=== PATIENT | female | born 1960 | race Caucasian/White ===

== ENCOUNTER 2016-12-05 18:11 | Inpatient (IN) ==
[2016-12-05] MEDS ORDERED: SODIUM CHLORIDE 0.9% 1,000 ML IV STA (19:35)
[2016-12-05] MEDS ORDERED: ONDANSETRON 4 MG/2 ML VIAL IV STA ×2 (19:35→23:06)
[2016-12-05] MEDS ORDERED: MORPHINE 2 MG/1 ML SYRINGE IV STA (19:35)
[2016-12-05 19:38] LABS: Basophils % 0.5 % (0.0-0.8); Eosinophils % 0.4 % (0.00-10.9); Hematocrit 33.5 VOL% (35.7-47.0); Hemoglobin 11.3 GM/DL (12.0-16.0); Immature Granulocytes % 6.6 %; Immature Granulocytes Absolute 0.37 #; Lymphocytes # 0.5 10*3/uL (1.4-4.0); Lymphocytes % 9.3 % (21.3-54.2); Mean Corpuscular HGB Conc 33.7 GM/DL (32-36); Mean Corpuscular Hemoglobin 30 PG (27-34); Mean Corpuscular Volume 88.9 FL (87-102); Mean Platelet Volume 8.6 FL (9.6-12.0); Monocytes # 0.5 10*3/uL (0.11-0.8); Monocytes % 8.7 % (1.7-12.7); Neutrophils # 4.2 10*3/uL (1.4-7.4); Neutrophils % 74.5 % (38.7-73.9); Platelet Count 176 T/CUMM (130-400); Red Blood Count 3.77 MC/CUMM (3.8-5.5); Red Cell Distribution Width 13.1 % (9.3-17.3); White Blood Count 5.6 T/CUMM (4-12)
[2016-12-05] MEDS ORDERED: ONDANSETRON 4 MG/2 ML VIAL ONE ×2 (19:39→23:07)
[2016-12-05] MEDS ORDERED: MORPHINE 2 MG/1 ML SYRINGE ONE (19:39)
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
[2016-12-05 19:59] LABS: Alanine Aminotransferase 14 U/L (13-56); Albumin 3.1 G/DL (3.4-5.0); Alkaline Phosphatase 143 U/L (45-117); Aspartate Amino Transferase 12 U/L (0-37); Bilirubin,Total < 0.39 MG/DL (0.2-1.0); Blood Urea Nitrogen 10 MG/DL (7-18); Calcium 9.1 MG/DL (8.5-10.1); Glucose 108 MG/DL (74-106); Osmolality,Calculated 259.8 MOS/KG (273-304); Potassium 3.8 MMOL/L (3.5-5.1); Sodium 130 MMOL/L (136-145); Total Protein 6.3 G/DL (6.4-8.3)
--- NOTE | 2016-12-05 20:01 | XRay Report ---
AP and left lateral decubitus imaging performed December 05, 2016 Indication: Abdominal distention with pain Comparison images performed February 26, 2016 Findings: Gaseous distention of the proximal colon with stool dispersed throughout the distal colon and rectum. Small bowel gas pattern is normal. No free intraperitoneal air. Impression: Fecal stasis, questionable fecal impaction PROCEDURE INTERPRETED AT [facility] DEPARTMENT OF RADIOLOGY Final Report Signed by: Andrew Santos
[2016-12-05 20:22] LABS: Band Neutrophils 2 % (0-10); Eosinophils 1 % (0-10); Lymphocytes 7 % (20-55); Platelet Estimate Normal; Segmented Neutrophils 86 % (50-85); Total Cells Counted 100
--- NOTE | 2016-12-05 20:35 | EKG Report ---
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
--- NOTE | 2016-12-05 21:07 | CT Report ---
Postcontrast CT abdomen December 05, 2016 Indication: Abdominal pain, liver metastasis Comparison images dated February 26, 2016 Technique: CT scan of the abdomen and pelvis was performed after the administration of intravenous contrast per routine protocol Findings: Lung bases are well aerated. Poorly defined intermediate density within the anterior aspect of the left lateral lobe has developed in the interim measuring about 3.3 cm. Scattered simple and lobulated hypodensities throughout the liver parenchyma relatively unchanged. Prior cholecystectomy. Persistent dilatation of the central intrahepatic and extrahepatic bile ducts. Pancreas is mildly atrophic. Kidneys are normal in morphology and enhancement. No small bowel abnormalities. No free fluid within the abdomen or pelvis. No adenopathy. No intraperitoneal air. Diffuse colonic distention with air-fluid levels proximal to the splenic flexure. Stool dispersed throughout the distal colon and rectum. No associated wall thickening. No pericolonic stranding. No demonstratable strictures. Uterus is surgically absent. Urinary bladder is partially decompressed. Levoscoliosis of the lumbar spine with prior L4-5 laminectomies and stabilization, uncomplicated. Impression: 1. Constipation with prominent distention of the proximal and transverse colon with air-fluid levels. 2. Ill-defined 3.3 cm lesion developed along the anterior margin of the left hepatic lobe. Given history of small cell carcinoma, could not exclude metastasis. Correlate with PET/CT if clinically indicated 3. Other findings as detailed above PROCEDURE INTERPRETED AT [facility] DEPARTMENT OF RADIOLOGY Final Report Signed by: Andrew Santos
[2016-12-05 21:12] LABS: Apearance,Urine CLEAR (Clear); Bilirubin,Urine Negative (Negative); Blood, Urine Negative (Negative); Glucose,Urine (UA) Negative (Negative); Hyaline Casts,Urine 1 /LPF (0-3); Ketones,Urine 20 mg/dL (Negative); Mucus,Urine Occasional /LPF (Occasional); Nitrite,Urine Negative (Negative); Protein,Urine Negative; RBC,Urine <1 /HPF (0-4); Squamous Epithelial Cell,Urine Occasional /HPF (0-10); Urine Color Yellow (Yellow); Urine Specific Gravity 1.035 (1.001-1.035); Urine Urobilinogen < 2.0 EU/DL (0.2-1.0); WBC,Urine 2 /HPF (0-6)
[2016-12-05] MEDS ORDERED: HYDROmorphone 2 MG/1 ML VIAL IV STA ×2 (21:26→23:06)
[2016-12-05] MEDS ORDERED: HYDROmorphone 2 MG/1 ML VIAL ONE (21:30)
[2016-12-05] MEDS ORDERED: ACETAMINOPHEN 325 MG TABLET PO PRN (22:22)
[2016-12-05] MEDS ORDERED: ONDANSETRON 4 MG/2 ML VIAL IV PRN (22:22)
[2016-12-05] MEDS ORDERED: DIAZEPAM 5 MG TABLET PO ONE (22:45)
[2016-12-05] MEDS ORDERED: PROCHLORPERAZINE 25 MG SUPP RECTAL PRN (22:52)
[2016-12-05] MEDS ORDERED: PROMETHAZINE INJ 12.5 MG in SODIUM CHLORIDE 0.9% 50 ML IV PRN (22:52)
[2016-12-05] MEDS ORDERED: SODIUM PHOSPHATE ENEMA 133 ML BOTTLE RECTAL SCH (23:00)
[2016-12-05] MEDS ORDERED: SODIUM CHLORIDE 0.9% 1,000 ML IV SCH (23:00)
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
[2016-12-06] MEDS ORDERED: PROCHLORPERAZINE 10 MG TABLET PO PRN (00:53)
[2016-12-06] MEDS ORDERED: PROMETHAZINE 25 MG/1 ML VIAL IM PRN (00:55)
[2016-12-06] MEDS: ENOXAPARIN 40 MG/0.4 ML SYRINGE SUBCUT SCH ×2 (01:14→21:54)
[2016-12-06] MEDS: LACTULOSE 20 GM/30 ML UDCUP PO SCH ×2 (01:15→09:00)
[2016-12-06] MEDS ORDERED: PHENYLEPHRINE 0.25% SUPP RECTAL PRN (02:50)
[2016-12-06] MEDS: MORPHINE 2 MG/1 ML SYRINGE IV PRN ×4 (03:20→15:22)
[2016-12-06] MEDS ORDERED: HYDROmorphone 2 MG/1 ML VIAL IV ONE (08:29)
[2016-12-06] MEDS: MORPHINE ER 30 MG TABLET PO SCH ×2 (09:00→20:24)
[2016-12-06] MEDS ORDERED: MORPHINE ER 15 MG TABLET PO SCH (09:00)
[2016-12-06] MEDS: PANTOPRAZOLE 40 MG TABLET PO SCH (09:00)
[2016-12-06] MEDS: POLYETHYLENE GLYCOL POWDER 17 GM PACK PO SCH (09:00)
--- NOTE | 2016-12-06 09:11 | XRay Report ---
2 view chest December 06, 2016 Indication: Shortness of breath cough Comparison images November 13, 2016 Findings: Cardiac and mediastinal contours are normal. Lungs are clear bilaterally. No pleural effusions. No pneumothorax. No perihilar prominence. No acute osseous abnormalities. Note made of prior cervical fusion, uncomplicated. Impression: Normal chest. PROCEDURE INTERPRETED AT [facility] DEPARTMENT OF RADIOLOGY Final Report Signed by: Andrew Santos
--- NOTE | 2016-12-06 10:03 | Hospitalist Progress Note ---
Assessment and Plan (1) Constipation Status: Acute Assessment and plan: The patient appears to have extensive stool throughout the descending colon. Her present efforts are striving to remove the impacted stool using enemas from below and moderate amounts of laxatives from above. The patient's obstipation is certainly augmented by her chronic opiate use required to treat back pain and chest discomfort from her small cell carcinoma. We will continue to select give supportive care with IV hydration, clear liquids, laxatives. There is no evidence of infection at the present time we will continue to observe for development of sepsis. Current Visit: Yes (2) Hyponatremia Status: Acute Current Visit: Yes (3) Hypertension Status: Chronic Current Visit: Yes (4) Small cell carcinoma Status: Chronic Current Visit: Yes Hospitalist: Subjective Interval history: The patient is admitted to the hospital with abdominal pain of a colicky nature. The pain is moderate to severe, episodic, and improved moderately with narcotic pain meds. The patient also complains of hemorrhoidal pain which is causing her to be nonadherent to the regimen prescribed with enemas. The patient is wishing to have a procedure which might relieve her of the obstipation. I discussed the patient's illness with her and we coordinate care at the bedside. I coordinate care with Dr. Dale concerning consultation in the absence of Dr. Springer. Rescreening the patient's CT scan images did not reveal any evidence of volvulus to Dr. Dale. Exam - Constitutional Vitals: Period Temp Pulse Resp BP Sys/Gagnon Pulse Ox Last 24 Hr 97.5 F-98.0 F 86-114 16-22 102-129/65-91 91-97 General appearance: normal weight - Respiratory Respiratory exam: Present: clear to auscultation bilaterally - Cardiovascular Cardiovascular exam: Present: regular rate and rhythm - GI/Abdominal GI/Abdominal exam: Present: hypoactive bowel sounds - Extremities Exam Extremities exam: Present: normal inspection Results - Labs CBC & BMP: 12/05/16 19:28 12/05/16 19:28 Lab Results: I have reviewed the past 24 hour labs
[2016-12-06] MEDS ORDERED: ONDANSETRON ODT 4 MG TABLET PO PRN (11:00)
[2016-12-06] MEDS ORDERED: PHENYLEPH/MINERAL OIL/PETROLAT 57 GM TUBE TOP PRN (11:07)
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
[2016-12-06] MEDS ORDERED: POLYETHYLENE GLYCOL 3350/ELECTROLYTES 4,000 ML BOTTLE PO ONE (13:00)
[2016-12-06 13:46] LABS: Calcium 8.2 MG/DL (8.5-10.1); Magnesium 1.9 MG/DL (1.8-2.4); Osmolality,Calculated 260.7 MOS/KG (273-304); Phosphorous 2.6 MG/DL (2.5-4.9); Potassium 3.5 MMOL/L (3.5-5.1)
[2016-12-06] MEDS: ACETAMINOPHEN 325 MG TABLET PO SCH ×3 (14:21→20:25)
[2016-12-06] MEDS: SODIUM CHLORIDE 0.9% 1,000 ML IV SCH (14:22)
[2016-12-06] MEDS ORDERED: DIAZEPAM 5 MG TABLET PO PRN (14:58)
[2016-12-06] MEDS ORDERED: ZALEPLON 5 MG CAPSULE PO PRN (20:49)
[2016-12-07] MEDS: MORPHINE 2 MG/1 ML SYRINGE IV PRN (00:53)
[2016-12-07] MEDS: MORPHINE ER 30 MG TABLET PO SCH (08:00)
[2016-12-07] MEDS: POLYETHYLENE GLYCOL POWDER 17 GM PACK PO SCH (08:01)
[2016-12-07] MEDS: ACETAMINOPHEN 325 MG TABLET PO SCH (08:01)
[2016-12-07] MEDS: SODIUM CHLORIDE 0.9% 1,000 ML IV SCH (08:01)
[2016-12-07] MEDS: PANTOPRAZOLE 40 MG TABLET PO SCH (08:01)
[2016-12-07 09:42] VITALS: BP 116/70
--- NOTE | 2016-12-07 11:04 | Discharge Summary ---
Hospital Course - Hospital Course Hospital Course: Mrs Dougherty presented with 2 weeks of constipation from narcotics which she uses for cancer pain. BMs were reestablished with soap suds enemas, miralax, and lactulose. She is feeling hungry again and her abdominal pain has resolved. She will return home on daily Miralax and lactulose with enemas prn. She will see Dr Springer in a week for follow up. She has an appointment with Dr Lam and DR Corral (for port). - Time spent with patient Time with patient DS: Greater than 30 minutes (35 minutes spent in exam, discharge planning, discussion of home treatment for constipation, medicine reconciliation and documentation) Diagnosis - Discharge Diagnosis (1) Constipation Status: Resolved Specialty Discharge - Follow Up or Referrals Follow up with: Vladislav Lam MD [Physician] - Klever Springer MD [Physician] - 1 Week (narcotic consitpation) Discharge Plan - Discharge Data Disposition: Disch To Home/Self Care Condition at Discharge: Stable Discharge Diet: regular diet Activity: resume usual activities as tolerated - Discharge Medications New Phenyleph/Mineral Oil/Petrolat [Preparation H Ointment] 1 applic TOP PRN PRN applic PRN Reason: Hemorrhoids Polyethylene Glycol Powder [Miralax] 17 gm PO DAILY Continue Morphine Sulfate [Morphine ER Cap] 30 mg PO BID Zolpidem Tartrate [Ambien] 10 mg PO BEDTIME buPROPion XL [Wellbutrin Xl] 300 mg PO DAILY SUMAtriptan TAB [Imitrex Tab] 100 mg PO DIRECTED PRN PRN Reason: Headache Omeprazole [Prilosec] 20 mg PO BID HydrOXYzine PAMOATE CAP [Vistaril Cap] 25 mg PO TID PRN PRN Reason: HEADACHES Prochlorperazine Tab [Compazine Tab] 10 mg PO TID PRN PRN Reason: Nausea/Vomiting Pegfilgrastim [Neulasta] 6 mg SQ DIRECTED LORazepam [Lorazepam] 1 mg PO DIRECTED PRN PRN Reason: Anxiety Lactulose 40 gm PO DAILY PRN PRN Reason: Constipation Docusate/Senna 50-8.6 [Senokot S] 2 tablet PO DAILY PRN MDD 4 tabs PRN Reason: Constipation Bisacodyl Tab [Dulcolax Tab] 10 mg PO DAILY PRN MDD 15mg PRN Reason: Constipation Cholecalciferol (Vitamin D3) [Vitamin D3] 2,000 unit PO DAILY Promethazine Tab [Phenergan Tab] 25 mg PO Q4-6H PRN PRN Reason: Nausea/Vomiting Melatonin 10 mg PO BEDTIME PRN PRN Reason: Sleep Acetaminophen Tab [Tylenol Tab] 325 mg PO Q4H PRN PRN Reason: Pain Oxycodone HCl/Acetaminophen [Percocet 10-325 mg Tablet] 1 each PO TID PRN PRN Reason: Pain Dicyclomine Cap/Tab [Bentyl Cap/Tab] 10 mg PO QID PRN PRN Reason: stomach spams diazePAM [Diazepam] 10 mg PO BID PRN PRN Reason: Anxiety Docusate Sodium Cap [Colace Cap] 100 mg PO DAILY PRN PRN Reason: Constipation Ondansetron HCl 8 mg PO Q6HR PRN PRN Reason: Nausea Discontinued Carisoprodol [Soma] 350 mg PO TID Lisinopril/Hctz 20-12.5 [Prinzide 20-12.5] 1 tablet PO DAILY - Follow Up or Referral Follow Up: Klever Springer MD [Physician] - 1 Week (narcotic consitpation) Vladislav Lam MD [Physician] - - Forms/Instructions Exam - Constitutional Vitals: Period Temp Pulse Resp BP Sys/Gagnon Pulse Ox Last 24 Hr 96.8 F-97.8 F 68-90 18-22 96-128/60-71 86-98 General appearance: normal weight, no acute distress - Eye Eye exam: Present: EOMI. Absent: scleral icterus - Respiratory Respiratory exam: Present: clear to auscultation bilaterally - Cardiovascular Cardiovascular exam: Present: regular rate and rhythm - GI/Abdominal GI/Abdominal exam: Present: normal bowel sounds, soft - Extremities Exam Extremities exam: Absent: edema Discharge Results Labs on day of discharge: Labs from last 24 hours 12/06/16 12:54 Sodium 131 L Potassium 3.5 Chloride 97 L Carbon Dioxide 25 Anion Gap 12.5 BUN 6 L Creatinine 0.50 L GFR Calculation 111 BUN/Creatinine Ratio 12.00 Glucose 116 H Calculated Osmolality 260.7 L Calcium 8.2 L Phosphorus 2.6 Magnesium 1.9 DS: Provider Date of admission: 12/05/16 22:22 Primary care physician: Hayde Santos NP Attending physician on admission: Graciela Raymundo MD Consults: 12/05/16 23:47 Consult to Dietitian [CONS] Routine Reason for Dietitian: Dietary Consult 12/06/16 08:32 Consult to Physician [CONS] Routine Comment: abdominal pain, obstipation Consulting Provider: Yazmin Dale Person Notified: Dr. Dale Date Notified: 12/06/16 Time Notified: 08:41 Discharging clinician: Darcy Moreno MD
--- NOTE | 2016-12-07 12:29 | Gastrointestinal Progress Note ---
Assessment and Plan (1) Abdominal pain Status: Acute Current Visit: Yes (2) Constipation Status: Resolved Current Visit: Yes (3) Nausea & vomiting Status: Acute Assessment and plan: PLEASE NOTE -- automatic citation of patient information is unavoidable in this electronic note. I have made a reasonable effort to review the information cited , but it is not a part of my evaluation, impression, or recommendation unless specifically discussed in the dictated text that follows. As well, voice recognition software was used in the creation of this clinical note. Reasonable effort was made to identify and correct gross errors. Despite proofreading, errors in tactical air defense controller may be present, including nonsense verbiage at times. If you encounter such an error, please contact me at [phone] for discussion and correction. -- Chito Chief complaint: Abdominal pain was severe opioid induced constipation 24 hour events: Started on GoLYTELY prep sipped over the day, repeated soapsuds enemas, significant bowel movement, complete relief of pain Subjective: Mrs. Shikha Dougherty states today that she had significant emptying of her intestines, abdominal pain is nearly completely resolved today, has an appetite, tolerating diet. Abdomen is very soft and compressible and no longer distended. Is ready to go home. Medications: Personally reviewed REVIEW OF SYSTEMS: Complete other review of systems negative except as noted in the HPI PHYSICAL EXAMINATION: CONSTITUTIONAL: Vital signs reviewed as documented above. In no acute distress. Nontoxic-appearing. EYES: Anicteric conjunctiva. Extra-ocular movements are intact and symmetric. EARS: Able to hear speech at conversational volume level, no external trauma/ masses. MOUTH: No oral/mouth lesions or ulcers. GI/ABDOMEN: Nonobese abdomen, soft, nontender to palpation, no rebound tenderness, nondistended, no rigidity. No palpable mass. No appreciable hepatosplenomegaly. MUSCULOSKELETAL: Moving around comfortably in bed muscle tone appears normal without any abnormal movements. PSYCH: Normal affect. Alert and oriented to person, place, and time. Laboratory: Personally reviewed Radiology: Personally reviewed reports and images with no pertinent changes unless noted here: Assessments: #Severe opioid-induced constipation. Now resolved with aggressive bowel regimen. #Metastatic lung cancer with potentially new 3 cm lesion on the left lobe of the liver. #Other specified counseling -- The patient was seen for greater than 30 minutes. The patient was counseled for greater than 50% of this time regarding differential diagnosis, likely diagnosis, diagnostic and therapeutic alternatives, risks/benefits/alternatives of medications and procedures, and plan of care generally. The patient expressed understanding and wishes to proceed. Recommendations: -Patient will be maintained on chronic outpatient opioid regimen, daily bowel movements will be especially important for her. -Daily MiraLAX is a good bowel regimen, patient counseled, can take as much or as little as needed daily to maintain 1-2 soft bowel movements per day. If she goes more than a day without a bowel movement, can increase MiraLAX dosing aggressively. Can additionally use Colace or lactulose if she likes, although all medications are stool softeners, lactulose can cause more gaseous distention in some patients, and patient does not like the sweet flavor. Colace can also continue to be used, but max doses 2 tablets per day. -Patient getting radiology report records in order to take to her cancer center. -Consider outpatient colonoscopy in 6-8 weeks to ensure bowel lumen is normal. Patient reports she is also due for her 5 year follow-up surveillance based on mother's history. GI will sign off at this time. Please call with further questions. Yazmin Dale MD, MPH STAFF GRADALL OPERATOR Current Visit: Yes Exam (Progress Note) - Constitutional Vitals: Period Temp Pulse Resp BP Sys/Gagnon Pulse Ox Last 24 Hr 96.8 F-97.7 F 68-85 18-20 96-117/60-70 86-98 Results - Labs CBC & BMP: 12/05/16 19:28 12/06/16 12:54 Specialty Discharge - Follow Up or Referrals Follow up with: Klever Springer MD [Physician] - 1 Week (narcotic consitpation) Vladislav Lam MD [Physician] -
== END 2016-12-07 12:35 | disposition home or self-care (01) | DRG 392 ==
LOC: N.ED 18:11 → SUATTDRO 22:22 → N.EDINP 22:22 → N.4E 23:10
PROVIDERS: ADMIT Internal Medicine; ATTEND Internal Medicine

== ENCOUNTER 2017-05-01 16:13 | Inpatient (IN) ==
[2017-05-01] MEDS ORDERED: HYDROmorphone 2 MG/1 ML VIAL IV STA (18:28)
[2017-05-01] MEDS ORDERED: ONDANSETRON 4 MG/2 ML VIAL IV STA (18:28)
[2017-05-01] MEDS ORDERED: ONDANSETRON 4 MG/2 ML VIAL ONE (18:36)
[2017-05-01] MEDS ORDERED: HYDROmorphone 2 MG/1 ML VIAL ONE (18:37)
[2017-05-01 18:47] LABS: Eosinophils % 0.3 % (0.00-10.9); Hematocrit 23.5 VOL% (35.7-47.0); Hemoglobin 7.9 GM/DL (12.0-16.0); Immature Granulocytes % 7.2 %; Immature Granulocytes Absolute 0.22 #; Lymphocytes # 0.4 10*3/uL (1.4-4.0); Lymphocytes % 12.4 % (21.3-54.2); Mean Corpuscular HGB Conc 33.6 GM/DL (32-36); Mean Corpuscular Hemoglobin 30 PG (27-34); Mean Platelet Volume 11.1 FL (9.6-12.0); Monocytes # 0.6 10*3/uL (0.11-0.8); Monocytes % 18.3 % (1.7-12.7); NRBC # 0.03 10*3/uL; Neutrophils # 1.9 10*3/uL (1.4-7.4); Neutrophils % 61.8 % (38.7-73.9); Red Blood Count 2.67 MC/CUMM (3.8-5.5); Red Cell Distribution Width 16.7 % (9.3-17.3); White Blood Count 3.1 T/CUMM (4-12)
[2017-05-01 18:52] LABS: Platelet Count 22 T/CUMM (130-400)
[2017-05-01 19:04] LABS: Band Neutrophils 5 % (0-10); Hypochromasia Slight; Lymphocytes 19 % (20-55); Microcytosis Slight; Nucleated Red Blood Cells 2 (0-5); Platelet Estimate Decreased; Segmented Neutrophils 68 % (50-85); Total Cells Counted 100
[2017-05-01 19:06] LABS: Apearance,Urine CLEAR (Clear); Bacteria,Urine Occasional /HPF (Few); Bilirubin,Urine Negative (Negative); Blood, Urine Negative (Negative); Glucose,Urine (UA) Negative (Negative); Ketones,Urine 20 mg/dL (Negative); Mucus,Urine Occasional /LPF (Occasional); Nitrite,Urine Negative (Negative); Protein,Urine Negative; RBC,Urine 1 /HPF (0-4); Squamous Epithelial Cell,Urine Occasional /HPF (0-10); Urine Color Yellow (Yellow); Urine Specific Gravity 1.013 (1.001-1.035); Urine Urobilinogen < 2.0 EU/DL (0.2-1.0); WBC,Urine 14 /HPF (0-6)
[2017-05-01] MEDS ORDERED: LEVOFLOXACIN INJ 500 MG in PREMIX 1 EACH IV STA (19:21)
[2017-05-01 19:27] LABS: Albumin 2.8 G/DL (3.4-5.0); Bilirubin,Total 0.8 MG/DL (0.2-1.0); Calcium 8.4 MG/DL (8.5-10.1); Magnesium 1.8 MG/DL (1.8-2.4); Osmolality,Calculated 249.5 MOS/KG (273-304); Potassium 4.6 MMOL/L (3.5-5.1); Total Protein 5.9 G/DL (6.4-8.3)
[2017-05-01] MEDS ORDERED: ALPRAZolam 0.25 MG TABLET PO PRN (19:28)
[2017-05-01] MEDS ORDERED: MYLANTA/LIDO VISC 2:1 300 ML BOTTLE SWISH/SPIT PRN (19:28)
[2017-05-01] MEDS ORDERED: MAGNESIUM HYDROXIDE SUSP 30 ML UDCUP PO PRN (19:28)
[2017-05-01] MEDS ORDERED: ACETAMINOPHEN 325 MG TABLET PO PRN (19:28)
[2017-05-01] MEDS ORDERED: PROMETHAZINE INJ 25 MG in SODIUM CHLORIDE 0.9% 50 ML IV PRN (19:28)
[2017-05-01] MEDS ORDERED: diphenhydrAMINE CAP 25 MG CAPSULE PO PRN (19:28)
[2017-05-01] MEDS ORDERED: BENZTROPINE 2 MG/2 ML AMP IV PRN (19:28)
[2017-05-01] MEDS ORDERED: LOPERAMIDE 2 MG CAPSULE PO PRN ×2 (19:28)
[2017-05-01] MEDS ORDERED: guaiFENesin 200 MG/10 ML UDCUP PO PRN (19:28)
[2017-05-01] MEDS ORDERED: ALUMINUM/MAGNES/SIMETH MAX STR 30 ML UDCUP PO PRN (19:28)
[2017-05-01] MEDS ORDERED: MYLANTA/LIDO VISC 2:1 300 ML BOTTLE SWISH/SWAL PRN (19:28)
[2017-05-01] MEDS ORDERED: LACTULOSE 20 GM/30 ML UDCUP PO PRN (19:28)
[2017-05-01] MEDS ORDERED: HYDROmorphone 2 MG/1 ML VIAL IV PRN (19:40)
[2017-05-01] MEDS ORDERED: SODIUM CHLORIDE 0.45% 1,000 ML IV SCH (20:00)
[2017-05-01] MEDS ORDERED: LEVOFLOXACIN INJ 100 ML IV ONE (20:19)
[2017-05-01 22:09] LABS: Sedimentation Rate-Westergren 130 MM/HR (0-30)
[2017-05-01] MEDS: HYDROmorphone 2 MG/1 ML VIAL IV PRN (22:54)
[2017-05-02] MEDS: ONDANSETRON 4 MG/2 ML VIAL IV PRN ×3 (05:10→19:06)
[2017-05-02] MEDS: HYDROmorphone 2 MG/1 ML VIAL IV PRN ×4 (05:16→21:00)
[2017-05-02] MEDS: SODIUM CHLORIDE 0.9% 1,000 ML IV SCH (11:46)
[2017-05-02] MEDS: VANCOMYCIN INJ 1,000 MG in SODIUM CHLORIDE 0.9% 250 ML IV SCH (11:47)
[2017-05-02] MEDS: DIAZEPAM 5 MG TABLET PO PRN (14:51)
[2017-05-02] MEDS: LEVOFLOXACIN INJ 500 MG in PREMIX 1 EACH IV SCH (21:05)
[2017-05-02] MEDS: NORTRIPTYLINE 10 MG CAPSULE PO SCH (21:06)
[2017-05-02] MEDS: TEMAZEPAM 7.5 MG CAPSULE PO PRN (22:25)
[2017-05-03] MEDS: VANCOMYCIN INJ 1,000 MG in SODIUM CHLORIDE 0.9% 250 ML IV SCH ×3 (00:14→23:37)
[2017-05-03] MEDS ORDERED: HEPARIN LOCK FLUSH 500 UNIT/5 ML SYRINGE IV ONE (04:48)
[2017-05-03] MEDS: ONDANSETRON 4 MG/2 ML VIAL IV PRN ×2 (04:56→14:52)
[2017-05-03] MEDS: SODIUM CHLORIDE 0.9% 1,000 ML IV SCH (05:00)
[2017-05-03] MEDS: HYDROmorphone 2 MG/1 ML VIAL IV PRN ×3 (05:01→22:23)
[2017-05-03 06:20] LABS: Eosinophils % 0.3 % (0.00-10.9); Hematocrit 20.5 VOL% (35.7-47.0); Hemoglobin 7.6 GM/DL (12.0-16.0); Immature Granulocytes % 6.4 %; Immature Granulocytes Absolute 0.25 #; Lymphocytes # 0.2 10*3/uL (1.4-4.0); Lymphocytes % 4.9 % (21.3-54.2); Mean Corpuscular HGB Conc 37.1 GM/DL (32-36); Mean Corpuscular Hemoglobin 30 PG (27-34); Mean Corpuscular Volume 81.7 FL (87-102); Mean Platelet Volume 11.2 FL (9.6-12.0); Monocytes # 0.7 10*3/uL (0.11-0.8); Monocytes % 16.6 % (1.7-12.7); NRBC # 0.02 10*3/uL; Neutrophils # 2.8 10*3/uL (1.4-7.4); Neutrophils % 71.8 % (38.7-73.9); Red Blood Count 2.51 MC/CUMM (3.8-5.5); Red Cell Distribution Width 16.1 % (9.3-17.3); White Blood Count 3.9 T/CUMM (4-12)
[2017-05-03 06:22] LABS: Platelet Count 12 T/CUMM (130-400)
[2017-05-03] MEDS ORDERED: SODIUM CHLORIDE 0.9% 1,000 ML IV PRN ×2 (06:58→10:18)
[2017-05-03 07:00] LABS: Albumin 2.7 G/DL (3.4-5.0); Bilirubin,Total 0.9 MG/DL (0.2-1.0); Calcium 7.5 MG/DL (8.5-10.1); Magnesium 1.7 MG/DL (1.8-2.4); Osmolality,Calculated 235.5 MOS/KG (273-304); Potassium 3.7 MMOL/L (3.5-5.1); Total Protein 5.7 G/DL (6.4-8.3)
[2017-05-03 09:08] LABS: Band Neutrophils 5 % (0-10); Lymphocytes 5 % (20-55); Platelet Estimate Decreased; Segmented Neutrophils 75 % (50-85); Total Cells Counted 100
[2017-05-03 09:09] LABS: Microcytosis Slight
[2017-05-03] MEDS: NORTRIPTYLINE 10 MG CAPSULE PO SCH ×2 (09:38→22:15)
[2017-05-03] MEDS: DIAZEPAM 5 MG TABLET PO PRN (10:50)
[2017-05-03] MEDS: SODIUM ACETATE IV SCH (13:18)
[2017-05-03] MEDS: [UNRECOGNIZED DRUG - OTHER] IV SCH (13:18)
[2017-05-03] MEDS: POTASSIUM CHLORIDE IV SCH (13:18)
[2017-05-03] MEDS: FUROSEMIDE 20 MG/2 ML VIAL IV SCH ×2 (14:54→22:10)
[2017-05-03] MEDS: SODIUM CHLORIDE 1 GM TABLET PO SCH ×2 (14:56→22:15)
[2017-05-03] MEDS ORDERED: HALOPERIDOL 5 MG/ML AMP IV ONE (18:40)
[2017-05-03] MEDS: LEVOFLOXACIN INJ 500 MG in PREMIX 1 EACH IV SCH (22:32)
[2017-05-04] MEDS: TEMAZEPAM 7.5 MG CAPSULE PO PRN (01:08)
[2017-05-04] MEDS: HYDROmorphone 2 MG/1 ML VIAL IV PRN (04:57)
[2017-05-04 06:36] LABS: Osmolality,Calculated 243.9 MOS/KG (273-304); Potassium 3.1 MMOL/L (3.5-5.1)
[2017-05-04] MEDS: POTASSIUM CHLORIDE IV SCH ×2 (07:03→10:39)
[2017-05-04] MEDS: SODIUM ACETATE IV SCH ×2 (07:03→10:39)
[2017-05-04] MEDS: [UNRECOGNIZED DRUG - OTHER] IV SCH ×2 (07:03→10:39)
[2017-05-04] MEDS ORDERED: POTASSIUM CHLORIDE 20 MEQ TABLET PO ONE (08:10)
[2017-05-04 08:31] LABS: Basophils % 0.3 % (0.0-0.8); Eosinophils % 0.3 % (0.00-10.9); Hematocrit 25.1 VOL% (35.7-47.0); Immature Granulocytes % 4.1 %; Immature Granulocytes Absolute 0.13 #; Lymphocytes # 0.2 10*3/uL (1.4-4.0); Mean Corpuscular HGB Conc 36.7 GM/DL (32-36); Mean Corpuscular Hemoglobin 31 PG (27-34); Mean Corpuscular Volume 85.1 FL (87-102); Mean Platelet Volume 10.9 FL (9.6-12.0); Monocytes # 0.6 10*3/uL (0.11-0.8); Monocytes % 18.1 % (1.7-12.7); NRBC # 0.02 10*3/uL; Neutrophils # 2.2 10*3/uL (1.4-7.4); Neutrophils % 70.2 % (38.7-73.9); Red Blood Count 2.95 MC/CUMM (3.8-5.5); Red Cell Distribution Width 15.2 % (9.3-17.3); White Blood Count 3.2 T/CUMM (4-12)
[2017-05-04 08:33] LABS: Hemoglobin 9.2 GM/DL (12.0-16.0)
[2017-05-04 08:34] LABS: Platelet Count 57 T/CUMM (130-400)
[2017-05-04 08:58] LABS: Band Neutrophils 1 % (0-10); Eosinophils 1 % (0-10); Lymphocytes 9 % (20-55); Metamyelocytes 1 %; Nucleated Red Blood Cells 1 (0-5); Segmented Neutrophils 73 % (50-85); Total Cells Counted 100
[2017-05-04 08:59] LABS: Hypochromasia 1+; Microcytosis Slight; Platelet Estimate Decreased
[2017-05-04] MEDS ORDERED: NICOTINE 14 MG/24 HR PATCH TRANSDERM SCH (09:00)
[2017-05-04] MEDS: LEVOFLOXACIN 500 MG TABLET PO SCH (09:27)
[2017-05-04] MEDS: NORTRIPTYLINE 10 MG CAPSULE PO SCH ×2 (09:27→21:00)
[2017-05-04] MEDS: SODIUM CHLORIDE 1 GM TABLET PO SCH ×3 (09:27→21:00)
[2017-05-04] MEDS: NICOTINE 21 MG/24 HR PATCH TRANSDERM SCH ×2 (09:28→12:55)
[2017-05-04] MEDS: DIAZEPAM 5 MG TABLET PO PRN ×2 (10:40→23:00)
[2017-05-04] MEDS: MORPHINE ER 15 MG TABLET PO SCH ×2 (14:29→21:00)
[2017-05-04] MEDS: FUROSEMIDE 20 MG/2 ML VIAL IV SCH (17:01)
[2017-05-04 17:46] LABS: Calcium 7.3 MG/DL (8.5-10.1); Osmolality,Calculated 245.8 MOS/KG (273-304); Potassium 3.8 MMOL/L (3.5-5.1)
[2017-05-05] MEDS: TEMAZEPAM 7.5 MG CAPSULE PO PRN ×2 (01:09→20:11)
[2017-05-05] MEDS: POTASSIUM CHLORIDE IV SCH ×2 (03:14→14:54)
[2017-05-05] MEDS: [UNRECOGNIZED DRUG - OTHER] IV SCH ×2 (03:14→14:54)
[2017-05-05] MEDS: SODIUM ACETATE IV SCH ×2 (03:14→14:54)
[2017-05-05] MEDS: HYDROmorphone 2 MG/1 ML VIAL IV PRN ×6 (03:16→21:24)
[2017-05-05 05:35] LABS: Basophils % 0.3 % (0.0-0.8); Eosinophils % 0.6 % (0.00-10.9); Hematocrit 26.9 VOL% (35.7-47.0); Immature Granulocytes % 6.6 %; Immature Granulocytes Absolute 0.21 #; Lymphocytes # 0.3 10*3/uL (1.4-4.0); Lymphocytes % 7.8 % (21.3-54.2); Mean Corpuscular HGB Conc 37.2 GM/DL (32-36); Mean Corpuscular Hemoglobin 31 PG (27-34); Mean Corpuscular Volume 84.6 FL (87-102); Mean Platelet Volume 11.3 FL (9.6-12.0); Monocytes # 0.5 10*3/uL (0.11-0.8); NRBC # 0.03 10*3/uL; Neutrophils # 2.2 10*3/uL (1.4-7.4); Neutrophils % 68.7 % (38.7-73.9); Platelet Count 43 T/CUMM (130-400); Red Blood Count 3.18 MC/CUMM (3.8-5.5); Red Cell Distribution Width 15.6 % (9.3-17.3); White Blood Count 3.2 T/CUMM (4-12)
[2017-05-05 06:05] LABS: Band Neutrophils 6 % (0-10); Hypochromasia 1+; Lymphocytes 6 % (20-55); Nucleated Red Blood Cells 1 (0-5); Ovalocytes Slight; Platelet Estimate Decreased; Segmented Neutrophils 73 % (50-85); Total Cells Counted 100
[2017-05-05 06:06] LABS: Microcytosis Slight
[2017-05-05 06:07] LABS: Calcium 7.3 MG/DL (8.5-10.1); Osmolality,Calculated 251.4 MOS/KG (273-304); Potassium 3.6 MMOL/L (3.5-5.1)
[2017-05-05] MEDS: DIAZEPAM 5 MG TABLET PO PRN (07:50)
[2017-05-05] MEDS: MORPHINE ER 15 MG TABLET PO SCH ×2 (08:47→20:11)
[2017-05-05] MEDS: FUROSEMIDE 20 MG/2 ML VIAL IV SCH ×2 (08:47→16:44)
[2017-05-05] MEDS: CARISOPRODOL 350 MG TABLET PO SCH ×2 (08:47→20:11)
[2017-05-05] MEDS: SODIUM CHLORIDE 1 GM TABLET PO SCH ×3 (08:47→20:11)
[2017-05-05] MEDS: NORTRIPTYLINE 10 MG CAPSULE PO SCH ×2 (08:47→20:11)
[2017-05-05] MEDS: LEVOFLOXACIN 500 MG TABLET PO SCH (08:47)
[2017-05-05] MEDS: NICOTINE 21 MG/24 HR PATCH TRANSDERM SCH (08:49)
[2017-05-05 16:10] LABS: Calcium 7.4 MG/DL (8.5-10.1); Osmolality,Calculated 251.4 MOS/KG (273-304); Potassium 3.8 MMOL/L (3.5-5.1)
[2017-05-06] MEDS: HYDROmorphone 2 MG/1 ML VIAL IV PRN ×2 (03:54→07:32)
[2017-05-06 05:17] LABS: Basophils % 0.3 % (0.0-0.8); Eosinophils % 0.6 % (0.00-10.9); Hemoglobin 10.4 GM/DL (12.0-16.0); Immature Granulocytes % 4.8 %; Immature Granulocytes Absolute 0.15 #; Lymphocytes # 0.2 10*3/uL (1.4-4.0); Lymphocytes % 7.7 % (21.3-54.2); Mean Corpuscular HGB Conc 34.7 GM/DL (32-36); Mean Corpuscular Hemoglobin 31 PG (27-34); Mean Corpuscular Volume 88.2 FL (87-102); Mean Platelet Volume 10.4 FL (9.6-12.0); Monocytes # 0.5 10*3/uL (0.11-0.8); Monocytes % 15.8 % (1.7-12.7); NRBC # 0.03 10*3/uL; Neutrophils # 2.2 10*3/uL (1.4-7.4); Neutrophils % 70.8 % (38.7-73.9); Red Cell Distribution Width 15.9 % (9.3-17.3); White Blood Count 3.1 T/CUMM (4-12)
[2017-05-06 05:25] LABS: Platelet Count 32 T/CUMM (130-400)
[2017-05-06 05:44] LABS: Band Neutrophils 5 % (0-10); Lymphocytes 9 % (20-55); Myelocytes 1 %; Segmented Neutrophils 75 % (50-85); Total Cells Counted 100
[2017-05-06 05:45] LABS: Hypochromasia 1+; Microcytosis 1+; Ovalocytes Slight; Platelet Estimate Decreased
[2017-05-06 05:59] LABS: Osmolality,Calculated 253.2 MOS/KG (273-304); Potassium 3.6 MMOL/L (3.5-5.1)
[2017-05-06] MEDS: [UNRECOGNIZED DRUG - OTHER] IV SCH (06:37)
[2017-05-06] MEDS: POTASSIUM CHLORIDE IV SCH (06:37)
[2017-05-06] MEDS: SODIUM ACETATE IV SCH (06:37)
[2017-05-06] MEDS: MORPHINE ER 15 MG TABLET PO SCH (09:42)
[2017-05-06] MEDS: NICOTINE 21 MG/24 HR PATCH TRANSDERM SCH (09:42)
[2017-05-06] MEDS: CARISOPRODOL 350 MG TABLET PO SCH (09:42)
[2017-05-06] MEDS: NORTRIPTYLINE 10 MG CAPSULE PO SCH (09:42)
[2017-05-06] MEDS: FUROSEMIDE 20 MG/2 ML VIAL IV SCH (09:43)
[2017-05-06] MEDS: SODIUM CHLORIDE 1 GM TABLET PO SCH (09:43)
[2017-05-06] MEDS: LEVOFLOXACIN 500 MG TABLET PO SCH (09:43)
[2017-05-06] MEDS ORDERED: HEPARIN LOCK FLUSH 500 UNIT/5 ML SYRINGE IV ONE (10:42)
[2017-05-06 11:31] VITALS: BP 114/71
== END 2017-05-06 11:25 | disposition hospice, home (50) | DRG 55 ==
LOC: N.ED 16:13 → N.EDINP 16:13 → N.4E 20:26
PROVIDERS: ADMIT Specialist; ATTEND Specialist